=== PATIENT | female | born 2000 | race Caucasian/White ===

== ENCOUNTER 2024-09-17 20:24 | Emergency (ER) | payer SELFPAY ==
[~2024-09-17] VITALS: Ht 165.1 cm; Wt 54.0 kg
[2024-09-17 20:54] VITALS: TEMP 37.2; O2SAT 100
[2024-09-17 23:06] VITALS: TEMP 98.9
[2024-09-17] MEDS: ONDANSETRON HCL 4MG TABLET PO ONE (23:06)
[2024-09-17] MEDS: ACETAMINOPHEN 325MG TABLET PO ONE (23:06)
[2024-09-17 23:30] LABS: CHLORIDE 107 mEq/L (98-107); HEMATOCRIT. 38.5 % (36.0-48.0); HEMOGLOBIN. 12.6 g/dL (12.0-16.0); MEAN CORPUSCULAR HGB CONC 32.8 g/dL (31.0-37.0); MEAN CORPUSCULAR VOLUME 88.4 fL (81.0-99.0); MEAN PLATELET VOLUME 8.5 fl (7.4-10.4); PLATELET 220 x1000/uL (130-400); POTASSIUM 3.8 mEq/L (3.5-5.1); RED BLOOD CELL COUNT 4.35 mill/uL (4.2-5.4); RED CELL DISTRIBUTION WIDTH 13.5 % (11.6-14.6); SODIUM 137 mEq/L (136-145); WHITE BLOOD COUNT 5.3 x1000/uL (4.5-11.0)
[2024-09-17 23:31] LABS: CARBON DIOXIDE 23 mEq/L (21-32)
[2024-09-17 23:36] LABS: CREATININE 0.8 mg/dL (0.6-1.0); GLUCOSE 113 mg/dL (70-105); UREA NITROGEN BLOOD 12 mg/dL (9-23)
[2024-09-17 23:38] LABS: ALANINE AMINOTRANSFERASE 7 IU/L (10-49); ALBUMIN 4.1 g/dL (3.2-4.8); ASPARTATE AMINOTRANSFERASE 15 IU/L (<34); BILIRUBIN DIRECT 0.1 mg/dL (<=3.0)
[2024-09-17 23:39] LABS: BILIRUBIN TOTAL 0.6 mg/dL (0.1-1.0); PROTEIN TOTAL 7.4 g/dL (6.0-8.3)
[2024-09-17 23:41] LABS: DIFFERENTIAL COMMENT 1
[2024-09-18 00:03] LABS: HCG SCREEN NEGATIVE
[2024-09-18 02:19] LABS: CLARITY URINE CLEAR (CLEAR); COLOR URINE YELLOW (YELLOW); GLUCOSE URINE NEGATIVE (NEGATIVE); KETONES URINE 3+ (NEGATIVE); LEUKOCYTE ESTERASE URINE TRACE (NEGATIVE); NITRITE URINE NEGATIVE (NEGATIVE); OCCULT BLOOD URINE 2+ (NEGATIVE); PH URINE 5.5 (4.5-8.0); PROTEIN URINE NEGATIVE (NEGATIVE); SPECIFIC GRAVITY URINE 1.027 (1.005-1.030); UROBILINOGEN URINE 0.2 E.U./dL (0.2-1.0)
[2024-09-18] MEDS ORDERED: MAG-55 MT (02:43)
[2024-09-18 02:50] VITALS: BP 111/66; PULSE 90; RESP 18; O2SAT 100
[2024-09-18 03:15] LABS: RBC URINE 0-2 /hpf (0-2); SQUAMOUS EPITHELIAL CELL URINE NONE SEEN /lpf (RARE/1+); WBC URINE 0-2 /hpf (0-2)
[2024-09-18 03:17] LABS: BACTERIA URINE NONE SEEN
[2024-09-18 03:30] LABS: PLATELET ESTIMATE NORMAL
== END 2024-09-18 02:51 | disposition home or self-care (01) ==
LOC: ER 20:24
DX: T18.9XXA Foreign body of alimentary tract, part unspecified, initial encounter (principal); Z79.899 Other long term (current) drug therapy; W44.9XXA Unspecified foreign body entering into or through a natural orifice, initial encounter; Y93.89 Activity, other specified; Y92.89 Other specified places as the place of occurrence of the external cause; Y99.8 Other external cause status
CPT/HCPCS: 99284; 80076; 80048; 84703; 83690; 85025; 36415; 74176; 81003; Q0162